=== PATIENT | female | born 1975 | race Caucasian/White ===

== ENCOUNTER → 2017-09-10 | Outpatient (CLI) | payer BC | LOC: MC.RAD 12:32 | DX: N64.52 Nipple discharge (principal) ==

== ENCOUNTER → 2018-02-11 | Outpatient (CLI) | payer BC | LOC: COL.RAD 08:00 | DX: J32.0 Chronic maxillary sinusitis (principal) ==

== ENCOUNTER → 2018-05-28 | Outpatient (CLI) | payer BC | LOC: COL.RAD 07:48 | DX: R10.11 Right upper quadrant pain (principal); Z90.710 Acquired absence of both cervix and uterus | CPT/HCPCS: Q9967 ==

== ENCOUNTER → 2019-06-29 | Outpatient (CLI) | payer BC | LOC: COL.RAD 06:50 | DX: K82.4 Cholesterolosis of gallbladder (principal) | CPT/HCPCS: A9537; J2805 ==

== ENCOUNTER → 2019-08-03 | Outpatient (CLI) | payer BC | LOC: MC.RAD 14:12 | DX: Z12.31 Encounter for screening mammogram for malignant neoplasm of breast (principal); N64.89 Other specified disorders of breast ==

== ENCOUNTER → 2019-08-06 | Outpatient (CLI) | payer BC | LOC: MC.RAD 09:25 | DX: N64.89 Other specified disorders of breast (principal) | CPT/HCPCS: G0279 ==

== ENCOUNTER 2020-04-24 14:57 | Emergency (ER) | payer OTHER ==
[~2020-04-24] VITALS: Ht 167.6 cm; Wt 118.2 kg
[2020-04-24 15:07] VITALS: BP 124/86; TEMP 98.1
[2020-04-24] MEDS ORDERED: BRINTELLIX20 PO (15:08)
[2020-04-24] MEDS ORDERED: LEVOXYL0.088 MG PO (15:08)
[2020-04-24] MEDS ORDERED: PRINZIDE 12.5 M1 TA1 PO (15:09)
[2020-04-24] MEDS ORDERED: ZYRTEC ALLERGY10 MG PO (15:09)
[2020-04-24] MEDS ORDERED: MOBIC15 MG PO (15:09)
[2020-04-24 15:38] LABS: COLLECTION METHOD CLEAN CATCH
[2020-04-24 15:43] LABS: PH 6 (5-8); SQUAMOUS EPITHELIAL 0-2 /hpf; URINE APPEARANCE Clear; URINE BACTERIA Rare /hpf; URINE BILIRUBIN Negative (NEGATIVE); URINE BLOOD Negative (NEGATIVE); URINE COLOR Straw; URINE GLUCOSE Negative (NEGATIVE); URINE KETONE Negative (NEGATIVE); URINE LEUKOCYTE ESTERASE Negative (NEGATIVE); URINE NITRATE Negative (NEGATIVE); URINE PROTEIN(semi-quant) Negative (NEGATIVE); URINE RBC 0-2 /hpf; URINE UROBILINOGEN Negative (NEGATIVE)
[2020-04-24 16:05] LABS: BASO # 0.1 (0.0-0.2); BASO % 0.7 % (0.0-2.0); EOS # 0.2 (0.0-0.7); EOS % 2.2 % (0-4.0); GRAN # 4.6 (1.4-6.5); GRAN % 67.2 % (42.2-75.2); HEMATOCRIT 37.9 % (37.0-47.0); HEMOGLOBIN 13.5 g/dl (12.5-16.0); LYMPH # 1.6 (1.2-3.4); LYMPH % 23.6 % (20.0-51.0); MEAN CELL VOLUME 93 fl (80.0-100.0); MEAN CORPUSCULAR HEMOGLOBIN 33 pg (27.0-31.0); MEAN CORPUSCULAR HGB CONC 36 g/dl (33.0-37.0); MEAN PLATELET VOLUME 9.8 fl (7.4-10.4); MONO # 0.4 (0.1-0.6); MONO % 6.2 % (1.7-9.3); PLATELET COUNT 334 K/mm3 (130-400); RED BLOOD COUNT 4.06 M/mm3 (4.10-5.30); REDCELL DISTRIBUTION WIDTH-CV 12.6 % (11.5-14.5)
[2020-04-24 16:24] LABS: ALANINE AMINOTRANSFERASE 33 U/L (4-34); ALBUMIN 4.4 gm/dL (3.5-5.0); ALKALINE PHOSPHATASE 108 U/L (50-136); ANION GAP 10 mmol/L (7-16); AST,SGOT 36 U/L (15-37); BILIRUBIN,TOTAL 0.5 mg/dL (0.0-1.0); BLOOD UREA NITROGEN 10 mg/dL (7-17); C-REACTIVE PROTEIN < 0.5 mg/dL (0.0-0.9); CALCIUM 9.3 mg/dL (8.4-10.2); CARBON DIOXIDE 22 mmol/L (22-30); CHLORIDE 106 mmol/L (98-107); CREATININE, serum 0.76 (0.52-1.25); GLUCOSE 95 mg/dL (74-106); LIPASE 51 U/L (23-300); POTASSIUM 3.8 mmol/L (3.4-5.0); SODIUM 138 mmol/L (137-145); TOTAL PROTEIN 7.7 gm/dL (6.4-8.2)
[2020-04-24] MEDS ORDERED: ZOFRAN ODT4 MG PO (17:23)
[2020-04-24] MEDS ORDERED: NORCO 325 MG-51 TAB PO (17:23)
[2020-04-24 18:03] VITALS: PULSE 71
== END 2020-04-24 18:07 | disposition home or self-care (01) ==
LOC: COL.ER 14:57
PROVIDERS: Emergency Medicine; Family Medicine
DX: R10.31 Right lower quadrant pain (principal); R19.7 Diarrhea, unspecified; I10 Essential (primary) hypertension; R11.0 Nausea; Z90.710 Acquired absence of both cervix and uterus; Z88.6 Allergy status to analgesic agent
CPT/HCPCS: J1885; J2405; J3010; J7030; Q9967

== ENCOUNTER → 2020-05-12 | Outpatient (CLI) | payer OTHER ==
[~2020-05-12] MED LIST: BRINTELLIX20 PO; LEVOXYL0.088 MG PO; MOBIC15 MG PO; NORCO 325 MG-51 TAB PO; PRINZIDE 12.5 M1 TA1 PO; ZOFRAN ODT4 MG PO; ZYRTEC ALLERGY10 MG PO
== END ==
LOC: COL.RAD 05-10 08:15
DX: M50.122 Cervical disc disorder at C5-C6 level with radiculopathy (principal); M48.02 Spinal stenosis, cervical region
CPT/HCPCS: A9585

== ENCOUNTER → 2020-06-15 | Outpatient (CLI) | payer OTHER | LOC: COL.RAD 06-07 13:30 | DX: J01.90 Acute sinusitis, unspecified (principal) ==

== ENCOUNTER → 2020-11-24 | Outpatient (CLI) | payer OTHER | LOC: COL.RAD 09:08 | DX: K80.50 Calculus of bile duct without cholangitis or cholecystitis without obstruction (principal) ==

== ENCOUNTER → 2020-12-15 | Outpatient (CLI) | payer OTHER | LOC: COL.RAD 11:09 | DX: R10.11 Right upper quadrant pain (principal) | CPT/HCPCS: A9537 ==

== ENCOUNTER → 2021-01-05 | Outpatient (CLI) | payer OTHER | LOC: COL.RAD 06:49 | DX: M22.42 Chondromalacia patellae, left knee (principal); M71.22 Synovial cyst of popliteal space [Baker], left knee; I10 Essential (primary) hypertension; G89.29 Other chronic pain; R10.9 Unspecified abdominal pain ==

== ENCOUNTER → 2021-01-25 | Outpatient (CLI) | payer OTHER | LOC: MC.RAD 13:31 | DX: Z12.31 Encounter for screening mammogram for malignant neoplasm of breast (principal) ==

== ENCOUNTER 2021-07-24 10:30 | Day surgery (SDC) | payer OTHER ==
[~2021-07-24] VITALS: Ht 167.6 cm; Wt 108.3 kg
[2021-07-24] MEDS ORDERED: ATARAX50 MG PO (10:43)
[2021-07-24] MEDS ORDERED: CYMBALTA 60MG60 MG PO (10:44)
[2021-07-24] MEDS ORDERED: PEPCID 20MG TAB20 MG PO (10:44)
[2021-07-24] MEDS ORDERED: BUSPAR10 MG PO (10:44)
[2021-07-24] MEDS ORDERED: ESTRODIAL PO (10:45)
[2021-07-24] MEDS ORDERED: OZEMPIC1 MG/0.75 SQ (10:46)
[2021-07-24 11:31] VITALS: BP 115/83; PULSE 85; TEMP 97.9
[2021-07-24] MEDS ORDERED: ULTRAM 50MG TAB50 MG PO (13:27)
[2021-07-24 14:25] VITALS: BP 137/78; PULSE 113; TEMP 98.2
--- NOTE | 2021-07-24 14:25 | NUR ---
Patient arrived from PACU, escorted by YSABEL Iyer. Report obtained over the phone with YSABEL Hill. Patient is alert and oriented, and is tolerating ice water well. Patient reports pain 2/10. Vitals obtained. O2 titrated down to 1L via nasal cannula. is present. Call anna is at bedside. Side rails x2. Patient requested a diet pepsi and plain untoasted wheat bread.
[2021-07-24 14:40] VITALS: BP 139/76; PULSE 91
--- NOTE | 2021-07-24 14:40 | NUR ---
Patient is sleeping. Vitals obatined.
[2021-07-24 14:55] VITALS: BP 138/77; PULSE 88
--- NOTE | 2021-07-24 14:55 | NUR ---
Patient is tolerating her diet pepsi and toast well. Denies neusea. No vomiting present. Patient states she would like to sleep. Side rails x2. Call anna is at bedside.
--- NOTE | 2021-07-24 15:00 | NUR ---
O2 discontinued. Patient remains above 90 % on room air.
[2021-07-24 15:10] VITALS: BP 128/77; PULSE 96
--- NOTE | 2021-07-24 15:10 | NUR ---
Patient is more alert and states she would like to use the bathroom. Patient was assisted to the edge of the bed, where she sat for a few minutes. Patient was then assisted to the bathroom. She voided successfully and stated desire to be discharged. Patient is still on the edge of the bed. Call anna is within reach.
--- NOTE | 2021-07-24 15:30 | NUR ---
Patient has changed into her own clothes. IV was discontinued at this time. Catheter tip intact. Pressure dressing applied. No redness or swelling noted.
--- NOTE | 2021-07-24 15:45 | NUR ---
Discharge instructions and educational material was reviewed at this time. Patient and her verbalized understanding of material, and the patient signed the related paperwork. Patient was escorted out via wheelchair by YSABEL Pena and transferred into the care of her at this time who is present to drive. Her has the discharge packet in hand.
[2021-07-24 15:58] VITALS: BP 132/80; PULSE 97
== END 2021-07-24 16:00 | disposition home or self-care (01) ==
LOC: SDCO 10:30
DX: K81.1 Chronic cholecystitis (principal); K82.8 Other specified diseases of gallbladder; K66.0 Peritoneal adhesions (postprocedural) (postinfection); K83.8 Other specified diseases of biliary tract; I10 Essential (primary) hypertension; J30.9 Allergic rhinitis, unspecified; E66.01 Morbid (severe) obesity due to excess calories; E03.9 Hypothyroidism, unspecified; G43.909 Migraine, unspecified, not intractable, without status migrainosus; M19.90 Unspecified osteoarthritis, unspecified site; Z79.890 Hormone replacement therapy; F32.A Depression, unspecified; Z79.899 Other long term (current) drug therapy; Z90.710 Acquired absence of both cervix and uterus; Z68.37 Body mass index [BMI] 37.0-37.9, adult
CPT/HCPCS: J1170; J2704; J3010; J7120

== ENCOUNTER → 2022-02-20 | Outpatient (CLI) | payer OTHER ==
[~2022-02-20] MED LIST changes: +ATARAX50 MG PO; +BUSPAR10 MG PO; +CYMBALTA 60MG60 MG PO; +ESTRODIAL PO; +OZEMPIC1 MG/0.75 SQ; +PEPCID 20MG TAB20 MG PO; +ULTRAM 50MG TAB50 MG PO
== END ==
LOC: MC.RAD 12:56
DX: Z12.31 Encounter for screening mammogram for malignant neoplasm of breast (principal)

== ENCOUNTER 2022-09-10 08:12 | Day surgery (SDC) | payer OTHER ==
[~2022-09-10] VITALS: Ht 167.7 cm; Wt 105.0 kg
[~2022-09-10 08:12] MED LIST changes: +ESTRACE2 MG PO; -ESTRODIAL PO; +MOUNJARO15 MG/0.5 SQ; -OZEMPIC1 MG/0.75 SQ
[2022-09-10 08:37] VITALS: BP 114/74; PULSE 82; TEMP 97.6
[2022-09-10] MEDS ORDERED: PRIL40 PO (08:50)
[2022-09-10] MEDS ORDERED: ELIQUIS 5MG PO (08:54)
[2022-09-10] MEDS ORDERED: LOPRESSOR 225 MG/TAB PO (08:57)
[2022-09-10] MEDS ORDERED: TIAZAC120 MG PO (09:00)
[2022-09-10] MEDS ORDERED: XANAX 0.5MG0.5 MG PO (09:02)
--- NOTE | 2022-09-10 09:06 | NUR ---
Procedure cancelled,Pt in SR.Dr Nixon in to see pt.
[2022-09-10] MEDS ORDERED: MULTAQ400 MG PO (09:10)
--- NOTE | 2022-09-10 09:30 | NUR ---
Discharge instructions given to pt.pt verbalizes understanding.Pt discharge via ambulatory.
== END 2022-09-10 09:31 ==
LOC: COL.CAR 08:12
DX: I48.20 Chronic atrial fibrillation, unspecified (principal); Z53.8 Procedure and treatment not carried out for other reasons; R91.1 Solitary pulmonary nodule; E03.8 Other specified hypothyroidism; Z87.891 Personal history of nicotine dependence; Z86.16 Personal history of COVID-19; Z79.01 Long term (current) use of anticoagulants

== ENCOUNTER 2023-07-19 08:00 | Day surgery (SDC) | payer OTHER ==
[~2023-07-19] VITALS: Ht 167.6 cm; Wt 114.0 kg
[~2023-07-19 08:00] MED LIST changes: +BUSPAR DIVIDOSE15 MG PO; -BUSPAR10 MG PO; +ELIQUIS 5MG PO; +LOPRESSOR 225 MG/TAB PO; -MOUNJARO15 MG/0.5 SQ; +MULTAQ400 MG PO; +PRIL40 PO; +TIAZAC120 MG PO; +WEGOVY1.7 MG/0.7 SQ; +XANAX 0.5MG0.5 MG PO
[2023-07-19 08:32] VITALS: BP 133/66; PULSE 60; TEMP 97.2
[2023-07-19] MEDS ORDERED: ZYRTEC 10MG10 MG PO (08:39)
[2023-07-19] MEDS ORDERED: CYMBALTA 60MG60 MG PO (08:42)
[2023-07-19] MEDS ORDERED: LOPRESSOR 550 MG/TAB PO (08:48)
[2023-07-19 09:47] VITALS: BP 129/66; PULSE 65
[2023-07-19] MEDS ORDERED: CEPHALEXIN500 M1 PO (09:50)
--- NOTE | 2023-07-19 10:42 | NUR ---
Discharge instructions given to pt.Pt verbalizes understanding.Pt escorted out by this nurse.
== END 2023-07-19 10:43 ==
LOC: COL.CAR 08:00
DX: I48.91 Unspecified atrial fibrillation (principal); Z79.01 Long term (current) use of anticoagulants
CPT/HCPCS: 27886; C1764